=== PATIENT | female | born 1995 | race Caucasian/White ===

== ENCOUNTER 2023-10-06 15:00 | Inpatient (IN) | payer OTHER ==
[2023-10-21] MEDS ORDERED: Bupivacaine 0.25% HCL 30 ML VIAL ONE (08:00)
[2023-10-21] MEDS ORDERED: ePHEDrine Sulfate 50 MG/10 ML VIAL ONE (08:00)
[2023-10-21] MEDS: Lactated Ringer's 1,000 ML IV SCH ×2 (10:20→12:37)
[2023-10-21] MEDS ORDERED: Oxytocin 30 units/NS 500 ML 500 ML ONE (10:28)
[2023-10-21 10:45] VITALS: BMI 26.2
[2023-10-21] MEDS ORDERED: Ibuprofen 800 MG TAB PO PRN (11:30)
[2023-10-21] MEDS ORDERED: Ondansetron PF 4 MG/2 ML Vial IVP PRN ×5 (11:30→17:39)
[2023-10-21] MEDS ORDERED: Misoprostol 200 MCG TAB PR PRN (11:30)
[2023-10-21] MEDS ORDERED: Promethazine HCl 25 MG/ML VIAL IM PRN ×4 (11:30→17:39)
[2023-10-21] MEDS ORDERED: Acetaminophen 500 MG TAB PO PRN (11:30)
[2023-10-21] MEDS ORDERED: hydrALAZINE 20 MG/ML VIAL SLOW IVP PRN ×2 (11:30→17:39)
[2023-10-21] MEDS ORDERED: Tranexamic Acid 1,000 MG/10 ML VIAL IVP PRN (11:30)
[2023-10-21] MEDS ORDERED: Diphenoxylate HCl/Atropine Tablet PO PRN (11:30)
[2023-10-21] MEDS ORDERED: Lidocaine 1% (PF) 30 ML VIAL SC PRN (11:30)
[2023-10-21] MEDS ORDERED: Methylergonovine 0.2 MG/ML VIAL IM PRN (11:30)
[2023-10-21] MEDS ORDERED: HYDROcodone/Acetaminophen 5/325 mg Tablet PO PRN (11:30)
[2023-10-21] MEDS ORDERED: Carboprost 250 MCG/ML AMP IM PRN (11:30)
[2023-10-21] MEDS ORDERED: Oxytocin 30 units/NS 500 ML 500 ML IV SCH ×3 (11:30)
[2023-10-21] MEDS ORDERED: fentaNYL 50 mcg/mL 1 mL Vial SLOW IVP PRN ×2 (11:30→14:45)
[2023-10-21 11:38] LABS: Hematocrit 33.2 % (34.9-44.5); Hemoglobin 11.7 g/dL (12.0-15.5); Mean Corpuscular HGB CONC 35.2 g/dL (32.0-36.0); Mean Corpuscular Volume 93.5 fl (81.6-98.3); Mean Platelet Volume 10.4 fl (7.4-10.4); Platelet Count 226 10x3/uL (150-450); RBC Distribution Width 12.3 % (11.5-14.5); Red Blood Cell (RBC) Count 3.55 10x6/uL (3.90-5.03); White Blood Cell (WBC) Count 9.1 10x3/uL (3.5-10.5)
[2023-10-21] MEDS ORDERED: fentaNYL/Ropivacaine Epidural 100 ML ONE (11:45)
[2023-10-21 12:08] LABS: HBSAg Index 0.13 S/CO (0-0.99); Hep B Surf Ag - L&D Non-Reactive S/CO (NonReactive)
[2023-10-21 12:09] LABS: Syphilis Antibody Nonreactive (Nonreactive); Syphilis Antibody Index 0.03 S/CO (<1.00 Non-Reactive)
[2023-10-21] MEDS ORDERED: Acetaminophen 325 MG TAB PO PRN (12:23)
[2023-10-21] MEDS ORDERED: Lactated Ringer's 500 ML IV PRN (12:23)
[2023-10-21] MEDS ORDERED: Naloxone HCl 0.4 mg/ml Vial IVP PRN ×4 (12:23→14:45)
[2023-10-21] MEDS ORDERED: ePHEDrine Sulfate 50 MG/10 ML VIAL SLOW IVP PRN (12:23)
[2023-10-21] MEDS ORDERED: Moisturizing Cream (Eucerin) 113 GM JAR TOP PRN ×2 (12:23→14:45)
[2023-10-21] MEDS ORDERED: diphenhydrAMINE 50 MG/ML VIAL IVP PRN ×2 (12:23→14:45)
[2023-10-21] MEDS ORDERED: Communication Order-Pharmacy FS SCH ×2 (12:30→14:45)
[2023-10-21] MEDS ORDERED: fentaNYL 2 mcg/Ropivacaine 0.2% Epidural 100 ML CADD EPIDURAL SCH (12:30)
[2023-10-21] MEDS ORDERED: Azithromycin 500 MG VIAL ONE ×2 (13:34→13:35)
[2023-10-21] MEDS ORDERED: CEFAZOLIN 2 GM VIAL ONE (13:34)
[2023-10-21] MEDS ORDERED: Ondansetron PF 4 MG/2 ML Vial ONE (13:39)
[2023-10-21] MEDS ORDERED: Morphine PF 10 MG/10 ML VIAL ONE (13:39)
[2023-10-21] MEDS ORDERED: Chloroprocaine 3% PF 20 ML VIAL ONE (13:39)
[2023-10-21] MEDS ORDERED: PHENYLEPHRINE-NS 100 MCG/ML 10 ML SYRINGE ONE (13:39)
[2023-10-21] MEDS ORDERED: Ketorolac Tromethamine 30 MG/ML VIAL ONE (13:39)
[2023-10-21] MEDS ORDERED: Dexamethasone 4 mg/ml Vial ONE (13:39)
[2023-10-21] MEDS ORDERED: Oxytocin 10 UNITS/ML VIAL ONE (13:39)
[2023-10-21 14:13] LABS: Analyzer IN Cardio CS NICU; RapidComm Collect By OR NURSE; pH (Cord, venous) 7.389 (7.250-7.350)
[2023-10-21 14:14] LABS: Analyzer IN Cardio CS NICU; RapidComm Collect By OR NURSE
[2023-10-21] MEDS ORDERED: Promethazine HCl 25 MG SUPP PR PRN (14:45)
[2023-10-21] MEDS ORDERED: Ketorolac Tromethamine 30 MG/ML VIAL IVP SCH (14:45)
[2023-10-21] MEDS ORDERED: Meperidine HCl/PF 25 MG/ML VIAL SLOW IVP PRN (14:45)
[2023-10-21] MEDS ORDERED: Naloxone HCl 0.4 mg/ml Vial IV PRN (14:45)
[2023-10-21] MEDS ORDERED: Ketorolac Tromethamine 30 MG/ML VIAL IVP PRN (14:45)
[2023-10-21] MEDS ORDERED: Bisacodyl 10 MG SUPP PR PRN (17:39)
[2023-10-21] MEDS ORDERED: Boostrix 0.5 ML (Tdap) VIAL (>/=7 yrs of age) IM ONE (17:39)
[2023-10-21] MEDS ORDERED: Simethicone Chewable 80 MG TAB PO PRN (17:39)
[2023-10-21] MEDS ORDERED: Lanolin Ointment 7 GM TUBE TOP PRN (17:39)
[2023-10-21] MEDS ORDERED: diphenhydrAMINE 25 MG CAP PO PRN (17:39)
[2023-10-21] MEDS: Ferrous Sulfate 325 MG TAB PO SCH (21:57)
[2023-10-21] MEDS: Docusate 100 MG CAP PO SCH (21:58)
[2023-10-21] MEDS: Ketorolac Tromethamine 30 MG/ML VIAL IVP SCH (22:58)
[2023-10-22] MEDS ORDERED: HYDROcodone/Acetaminophen 5/325 mg Tablet PO PRN (02:45)
[2023-10-22 05:29] LABS: Hematocrit 27.3 % (34.9-44.5); Hemoglobin 9.6 g/dL (12.0-15.5); Mean Corpuscular HGB CONC 35.2 g/dL (32.0-36.0); Mean Corpuscular Hemoglobin 33.1 pg (27.0-33.0); Mean Corpuscular Volume 94.1 fl (81.6-98.3); Platelet Count 159 10x3/uL (150-450); RBC Distribution Width 12.3 % (11.5-14.5); White Blood Cell (WBC) Count 8.3 10x3/uL (3.5-10.5)
[2023-10-22] MEDS: Ketorolac Tromethamine 30 MG/ML VIAL IVP SCH ×3 (05:39→12:11)
[2023-10-22] MEDS: Docusate 100 MG CAP PO SCH ×2 (09:52→20:02)
[2023-10-22] MEDS: Ferrous Sulfate 325 MG TAB PO SCH ×2 (09:52→20:02)
[2023-10-22] MEDS: Prenatal Vitamin 1 TAB PO SCH (09:52)
[2023-10-22] MEDS: HYDROcodone/Acetaminophen 5/325 mg Tablet PO PRN ×2 (14:12→20:02)
[2023-10-22] MEDS ORDERED: Ibuprofen 800 MG TAB PO PRN (21:00)
[2023-10-22] MEDS: Ibuprofen 800 MG TAB PO SCH (21:28)
[2023-10-23] MEDS: HYDROcodone/Acetaminophen 5/325 mg Tablet PO PRN ×3 (01:32→13:23)
[2023-10-23] MEDS: Ibuprofen 800 MG TAB PO SCH ×2 (05:24→13:23)
[2023-10-23 07:50] VITALS: BP 115/56; TEMP 98.3
[2023-10-23] MEDS: Prenatal Vitamin 1 TAB PO SCH (08:33)
[2023-10-23] MEDS: Ferrous Sulfate 325 MG TAB PO SCH (08:33)
[2023-10-23] MEDS: Docusate 100 MG CAP PO SCH (08:33)
== END 2023-10-23 16:00 | disposition home or self-care (01) | DRG 788 ==
LOC: CSHLD 10-21 09:48 → CSHPP 10-21 17:35 → EDSTATUS 10-24 15:00
PROVIDERS: ADMIT Family Medicine; ATTEND Family Medicine
PROC: 10D00Z1 Extraction of Products of Conception, Low, Open Approach (ICD-10-PCS; principal; 2023-10-21)
PROC: 3E033VJ Introduction of Other Hormone into Peripheral Vein, Percutaneous Approach (ICD-10-PCS; 2023-10-21)
PROC: 10907ZC Drainage of Amniotic Fluid, Therapeutic from Products of Conception, Via Natural or Artificial Opening (ICD-10-PCS; 2023-10-21)
PROC: 10H07YZ Insertion of Other Device into Products of Conception, Via Natural or Artificial Opening (ICD-10-PCS; 2023-10-21)
PROC: 3E0P05Z Introduction of Adhesion Barrier into Female Reproductive, Open Approach (ICD-10-PCS; 2023-10-21)
DX: O36.5930 Maternal care for other known or suspected poor fetal growth, third trimester, not applicable or unspecified (principal); Z3A.38 38 weeks gestation of pregnancy; Z37.0 Single live birth; Z79.82 Long term (current) use of aspirin; O76 Abnormality in fetal heart rate and rhythm complicating labor and delivery
CPT/HCPCS: 36415; 51702; 82805; 85027; 86780; 86850; 86900; 86901; 87340; J1100; J1885; J2274; J2401; J2405; J2590; J7120; S0020

== ENCOUNTER 2023-10-10 12:14 | Day surgery (SDC) | payer OTHER ==
[2023-10-10 13:18] VITALS: BMI 26.4
== END 2023-10-10 14:00 | disposition left against medical advice (07) ==
LOC: CSHLD/OP 12:14
PROVIDERS: ATTEND Family Medicine
DX: O36.8130 Decreased fetal movements, third trimester, not applicable or unspecified (principal); Z3A.00 Weeks of gestation of pregnancy not specified
CPT/HCPCS: 76819